=== PATIENT | female | born 1950 | race Caucasian/White ===

== ENCOUNTER → 2017-10-08 | Outpatient (CLI) | payer BC ==
[2017-02-28 15:49] VITALS: BP 144/88
[~2017-10-08] MED LIST: ALBU1.25 NEB; CHOL10003 PO; FLUO20CA8 PO; LISI-334 PO; METF500T5 PO; OMEP40CA5 PO; PROAIR HFA8.5 GM INH; TIOT18CA IH
--- NOTE | 2017-10-08 14:59 | KCIC ---
MR thoracic spine without contrast October 20 INDICATION: Acute compression fracture. History of prior compression fracture with new mid thoracic pain for 2 weeks. COMPARISON: None available. TECHNIQUE: Multiplanar, multisequence MR imaging of the thoracic spine was performed without intravenous contrast. FINDINGS: There is a chronic superior endplate compression fracture involving T6 with approximately 75 percent height loss. There is no significant retropulsion. There is a acute superior endplate compression deformity involving T4 with approximately 25 percent height loss. There is no significant retropulsion. There is no epidural hematoma or paraspinal hematoma. There is a posterior ligamentous injury. There is chronic height loss involving T4 with approximately 50 percent height loss. No associated edema. There is mild disc height loss at T4-T5 and T5-T6 and T6-T7. There is no disc herniation. There is no significant spinal canal stenosis. There is mild neuroforaminal stenosis at T5-T6 and T6-T7 bilaterally. Thoracic spinal cord signal intensity is normal on all sequences. Visualized portions of the lungs appear clear. Thoracic aorta is normal in caliber. Lung bases are clear. Visualized portions of the upper abdomen appear normal. IMPRESSION: 1. There is a acute to subacute superior endplate compression fracture involving T5 with approximately 25 percent height loss. There is no retropulsion or epidural hematoma. No posterior ligamentous injury is identified. 2. Chronic superior endplate compression deformities are identified at T4 and T6. Electronically signed by: Gretchen Vo MD (10/08/2017 2:55 PM) [id number]
== END | disposition home or self-care (01) ==
LOC: KCIC MRI 13:07
PROVIDERS: ATTEND Anesthesiology Pain Medicine
DX: M48.54XD Collapsed vertebra, not elsewhere classified, thoracic region, subsequent encounter for fracture with routine healing (principal); M48.04 Spinal stenosis, thoracic region; Z88.0 Allergy status to penicillin; Z88.6 Allergy status to analgesic agent
CPT/HCPCS: 72146